=== PATIENT | female | born 1985 | race Caucasian/White ===

== ENCOUNTER 2017-04-20 00:52 | Emergency (ER) | payer OTHER ==
[~2017-04-20] VITALS: Ht 170.2 cm; Wt 65.8 kg
[~2017-04-20 00:52] MED LIST: ACET325 PO; ACETAMINOPHEN500 MG PO; ALBU90OI INH; ALPR.25 PO; ALPR.5 PO; ALPR1 PO; ALUMAG30SU PO; AMOX500 PO; AZIT250 PO; AZIT500 PO; BENTYL20 MG PO; BIRTH CONTROL PILLS; CEFD300 PO; CEPH500 PO; CIPR500 PO; CODACEE120 PO; CODGUAEL PO; CRUTCH4 USE; CYAN1000I IM; CYCL10 PO; DIAZ5 PO; DIPATR PO; DIPH25; DIVA500EC PO; DOCSEN PO; DOXY100 PO; ERYSTE250 PO; ERYT500 PO; FAMO20 PO; FAMO40 PO; FLUC150A PO; Flomax0.4 MG PO; HYDACE5 PO; IBUP200; IBUP600 PO; IBUP800 PO; IBUPROFEN 200 MG; IRON; KENALOG; LANS15EC PO; LEVCAR100L PO; LEVFLO500 PO; LEVSOD125 PO; LORA.5 PO; MEDR150I IM; METR250; METR500; METR500 PO; NAPR500 PO; NAPR550 PO; NORETHTP; Norco 5-325 Ta1 EACH PO; OMEP20ER PO; ONDA4ODT MM; OXYACE5T PO; PANT20 PO; PHENA200 PO; PRENATAL; PROCODE120 PO; PROM25 PO; Prednisone20 MG PO; RANI150 PO; RISP3 PO; RXDIPATR PO; RXHYDACE PO; RXONDA4ODT MM; RXOXYACE PO; RXPHEN200 PO; RXPROM25 PO; STOOL SOFTNER; SUCR1 PO; SULTRIDS PO; TRAM50 PO; TYLENOL W/ CODEINE; Tylenol325 MG PO; Ultram50 MG PO; Verotin-Gr Cap1 EACH PO; Zithromax250 MG PO; Zofran Odt4 MG SL; Zofran4 MG PO; [UNRECOGNIZED DRUG - OTHER]
[2017-04-20 02:09] LABS: Influenza A Negative (NEGATIVE); Influenza B Negative (NEGATIVE)
== END 2017-04-20 02:36 | disposition home or self-care (01) ==
LOC: ER 00:52
PROVIDERS: Emergency Medicine
DX: J11.1 Influenza due to unidentified influenza virus with other respiratory manifestations (principal); K21.9 Gastro-esophageal reflux disease without esophagitis; Z88.0 Allergy status to penicillin; Z88.8 Allergy status to other drugs, medicaments and biological substances; Z88.1 Allergy status to other antibiotic agents; Z88.5 Allergy status to narcotic agent; Z90.89 Acquired absence of other organs
CPT/HCPCS: 87081; 87430; 87804; 99283

== ENCOUNTER 2017-11-17 10:53 | Emergency (ER) | payer OTHER ==
[~2017-11-17] VITALS: Ht 170.2 cm; Wt 68.0 kg
[2017-11-17] MEDS ORDERED: KETO10 PO (12:18)
[2017-11-17] MEDS ORDERED: Cyclobenzaprine5 MG PO (12:18)
== END 2017-11-17 12:28 | disposition home or self-care (01) ==
LOC: ER 10:53
DX: S16.1XXA Strain of muscle, fascia and tendon at neck level, initial encounter (principal); V86.63XA Passenger of dune buggy injured in nontraffic accident, initial encounter; K21.9 Gastro-esophageal reflux disease without esophagitis
CPT/HCPCS: 99282

== ENCOUNTER 2018-03-08 22:42 | Emergency (ER) | payer OTHER ==
[~2018-03-08] VITALS: Ht 170.2 cm; Wt 64.4 kg
[~2018-03-08 22:42] MED LIST changes: +Cyclobenzaprine5 MG PO; +KETO10 PO
[2018-03-08] MEDS ORDERED: Zithromax250 MG PO (23:42)
== END 2018-03-09 00:47 | disposition home or self-care (01) ==
LOC: ER 22:42
DX: H66.91 Otitis media, unspecified, right ear (principal); R59.0 Localized enlarged lymph nodes; Z88.0 Allergy status to penicillin; Z88.8 Allergy status to other drugs, medicaments and biological substances; Z88.1 Allergy status to other antibiotic agents; Z88.5 Allergy status to narcotic agent; K21.9 Gastro-esophageal reflux disease without esophagitis
CPT/HCPCS: 87081; 87430; 99283; J1100

== ENCOUNTER 2018-05-28 20:26 | Emergency (ER) | payer OTHER ==
[~2018-05-28] VITALS: Ht 170.2 cm; Wt 64.4 kg
[2018-05-28] MEDS ORDERED: KETO10 PO (21:22)
== END 2018-05-28 21:34 | disposition home or self-care (01) ==
LOC: ER 20:26
DX: S90.32XA Contusion of left foot, initial encounter (principal); Z88.0 Allergy status to penicillin; Z79.899 Other long term (current) drug therapy; W04.XXXA Fall while being carried or supported by other persons, initial encounter
CPT/HCPCS: 73630; 99283-25

== ENCOUNTER 2019-02-16 21:04 | Emergency (ER) | payer OTHER ==
[~2019-02-16] VITALS: Ht 170.2 cm; Wt 70.3 kg
[2019-02-16] MEDS ORDERED: KETO10 PO (21:51)
[2019-02-16] MEDS ORDERED: Cyclobenzaprine5 MG PO (21:51)
== END 2019-02-16 22:02 | disposition home or self-care (01) ==
LOC: ER 21:04
DX: S16.1XXA Strain of muscle, fascia and tendon at neck level, initial encounter (principal); M62.838 Other muscle spasm; X58.XXXA Exposure to other specified factors, initial encounter; Z88.0 Allergy status to penicillin; Z88.8 Allergy status to other drugs, medicaments and biological substances; Z88.1 Allergy status to other antibiotic agents; Z88.5 Allergy status to narcotic agent; Z79.899 Other long term (current) drug therapy; K21.9 Gastro-esophageal reflux disease without esophagitis
CPT/HCPCS: 99283

== ENCOUNTER 2019-04-06 15:57 | Emergency (ER) | payer OTHER ==
[~2019-04-06] VITALS: Ht 170.2 cm; Wt 70.3 kg
[2019-04-06 17:20] LABS: Source, Urine Clean Catch
[2019-04-06 17:27] LABS: Bilirubin, Urine Neg (Neg); Blood, Urine Neg (Neg); Glucose Qualitative, Urine Neg (Neg); Ketones, Urine 1+ (Neg); Leukocyte Esterase, Urine 1+ (Neg); Nitrite, Urine Neg (Neg); Protein, Urine Neg (Neg); Urobilinogen, Urine NORM (Normal)
[2019-04-06 17:30] LABS: Appearance, Urine Clear (Clear); Color, Urine Yellow (P-Yellow)
[2019-04-06 17:34] LABS: Bacteria Mod /hpf; Red Blood Cells, Urine 0-2 /hpf (0-2); Squamous Epithelial Cells Few /hpf (Few)
[2019-04-06 17:35] LABS: Mucus Mod (0-Heavy)
[2019-04-06 18:59] LABS: BASOPHILS ABSOLUTE AUTO 0.04 K/mm3 (0.00-0.23); BASOPHILS PERCENT AUTO 0 % (0-2); EOSINOPHILS ABSOLUTE AUTO 0.07 K/mm3 (0.00-0.68); EOSINOPHILS PERCENT AUTO 1 % (0-6); Hematocrit 39.2 % (33.0-51.0); Hemoglobin 13.4 g/dL (11.5-16.0); IMMATURE GRAN ABSOLUTE AUTO 0.03 K/mm3 (0.00-0.10); IMMATURE GRAN PERCENT AUTO 0 % (0-1); LYMPHOCYTES ABSOLUTE AUTO 2.18 K/mm3 (0.84-5.20); LYMPHOCYTES PERCENT AUTO 18 % (21-46); MONOCYTES ABSOLUTE AUTO 0.95 K/mm3 (0.16-1.47); MONOCYTES PERCENT AUTO 8 % (4-13); Mean Corpuscular HGB 29.3 pg (26.0-34.0); Mean Corpuscular HGB Conc 34.2 g/dL (31.5-36.5); Mean Corpuscular Volume 86 fL (80-100); Mean Platelet Volume 9.9 fL (9.1-12.4); NEUTROPHILS ABSOLUTE AUTO 8.77 K/mm3 (1.96-9.15); NEUTROPHILS PERCENT AUTO 73 % (41-73); Platelet Count 243 K/mm3 (150-400); RDW Coefficient Variation 11.9 % (11.7-14.2); RDW Standard Deviation 37.2 fL (35.1-46.3); Red Blood Cell Count 4.57 M/mm3 (3.80-5.20); White Blood Cell Count 12.04 K/mm3 (4.00-11.30)
[2019-04-06 19:41] LABS: Alanine Aminotransfer (ALT/SGP 26 U/L (12-78); Albumin, Blood 4.1 g/dL (3.4-5.0); Albumin/Globulin Ratio 1.2 (0.8-1.8); Alk Phos 61 U/L (50-136); Anion Gap 5 mmol/L (6-16); Aspartate Aminotrans (AST/SGOT 9 U/L (12-37); Bilirubin, Total 0.8 mg/dL (0.1-1.0); Blood Urea Nitrogen 13 mg/dL (8-24); CO2, Blood 25 mmol/L (21-32); Calcium, Blood 8.9 mg/dL (8.5-10.1); Chloride, Blood 107 mmol/L (98-108); Creatinine, Blood 0.72 mg/dL (0.40-1.00); Globulin, Blood 3.5 g/dL (2.2-4.0); Glomerular Filtration Rate >60 (60-); Glucose, Blood 87 mg/dL (70-99); Potassium, Blood 3.9 mmol/L (3.5-5.5); Sodium, Blood 137 mmol/L (136-145); Total Protein, Blood 7.6 g/dL (6.4-8.2)
[2019-04-06] MEDS ORDERED: ONDA4ODT MM (21:30)
[2019-04-06] MEDS ORDERED: Prednisone20 MG PO (21:30)
== END 2019-04-06 21:39 | disposition home or self-care (01) ==
LOC: ER 15:57
PROVIDERS: Physician Assistant
DX: K52.9 Noninfective gastroenteritis and colitis, unspecified (principal); J01.90 Acute sinusitis, unspecified; B97.89 Other viral agents as the cause of diseases classified elsewhere; Z88.0 Allergy status to penicillin; Z88.8 Allergy status to other drugs, medicaments and biological substances; Z88.1 Allergy status to other antibiotic agents; Z79.899 Other long term (current) drug therapy; K21.9 Gastro-esophageal reflux disease without esophagitis; F41.9 Anxiety disorder, unspecified
CPT/HCPCS: 36415; 74177; 76770; 80053; 81001; 81025; 83690; 85025; 87086; 99284-25; A9270; Q9967

== ENCOUNTER → 2019-04-06 | Outpatient (CLI) | payer OTHER ==
[2019-04-08 15:07] LABS: HPV 16 Negative (Negative); HPV 18 Negative (Negative); HPV OTHER HR TYPES Negative (Negative)
== END | disposition home or self-care (01) ==
LOC: LAB 18:39 → LAB SHORT 18:39
PROVIDERS: Obstetrics & Gynecology
DX: Z01.419 Encounter for gynecological examination (general) (routine) without abnormal findings (principal)
CPT/HCPCS: 87624; G0123

== ENCOUNTER 2020-05-16 09:11 | Emergency (ER) | payer OTHER ==
[~2020-05-16] VITALS: Ht 170.2 cm; Wt 72.6 kg
[2020-05-16 10:06] LABS: BASOPHILS ABSOLUTE AUTO 0.05 K/mm3 (0.00-0.23); BASOPHILS PERCENT AUTO 1 % (0-2); EOSINOPHILS ABSOLUTE AUTO 0.11 K/mm3 (0.00-0.68); EOSINOPHILS PERCENT AUTO 2 % (0-6); Hematocrit 40.5 % (33.0-51.0); Hemoglobin 14.3 g/dL (11.5-16.0); IMMATURE GRAN ABSOLUTE AUTO 0.02 K/mm3 (0.00-0.10); IMMATURE GRAN PERCENT AUTO 0 % (0-1); LYMPHOCYTES ABSOLUTE AUTO 1.97 K/mm3 (0.84-5.20); LYMPHOCYTES PERCENT AUTO 27 % (21-46); MONOCYTES ABSOLUTE AUTO 0.64 K/mm3 (0.16-1.47); MONOCYTES PERCENT AUTO 9 % (4-13); Mean Corpuscular HGB 29.3 pg (26.0-34.0); Mean Corpuscular HGB Conc 35.3 g/dL (31.5-36.5); Mean Corpuscular Volume 83 fL (80-100); Mean Platelet Volume 10.5 fL (9.1-12.4); NEUTROPHILS PERCENT AUTO 62 % (41-73); Platelet Count 262 K/mm3 (150-400); RDW Coefficient Variation 12.2 % (11.7-14.2); RDW Standard Deviation 36.8 fL (35.1-46.3); Red Blood Cell Count 4.88 M/mm3 (3.80-5.20); White Blood Cell Count 7.29 K/mm3 (4.00-11.30)
[2020-05-16 10:08] LABS: Source, Urine Clean Catch
[2020-05-16 10:12] LABS: Bilirubin, Urine Neg (Neg); Blood, Urine 1+ (Neg); Glucose Qualitative, Urine Neg (Neg); Ketones, Urine 1+ (Neg); Leukocyte Esterase, Urine 2+ (Neg); Nitrite, Urine Neg (Neg); Protein, Urine 1+ (Neg); Urobilinogen, Urine NORM (Normal)
[2020-05-16 10:22] LABS: Appearance, Urine Hazy (Clear); Color, Urine Yellow (P-Yellow)
[2020-05-16 10:25] LABS: Squamous Epithelial Cells Many /hpf (Few)
[2020-05-16 10:28] LABS: Alanine Aminotransfer (ALT/SGP 30 U/L (12-78); Albumin, Blood 4.2 g/dL (3.4-5.0); Albumin/Globulin Ratio 1.1 (0.8-1.8); Alk Phos 70 U/L (50-136); Anion Gap 6 mmol/L (6-16); Aspartate Aminotrans (AST/SGOT 14 U/L (12-37); Blood Urea Nitrogen 9 mg/dL (8-24); Bun/Creatinine Ratio 12.5 (12.0-20.0); CO2, Blood 27 mmol/L (21-32); Calcium, Blood 9.2 mg/dL (8.5-10.1); Chloride, Blood 107 mmol/L (98-108); Creatinine, Blood 0.72 mg/dL (0.40-1.00); Globulin, Blood 3.9 g/dL (2.2-4.0); Glomerular Filtration Rate >60 (60-); Glucose, Blood 92 mg/dL (70-99); Potassium, Blood 3.8 mmol/L (3.5-5.5); Sodium, Blood 140 mmol/L (136-145); Total Protein, Blood 8.1 g/dL (6.4-8.2)
[2020-05-16 10:30] LABS: Bacteria Many /hpf; Yeast/Fungi Urine Few /hpf
== END 2020-05-16 11:37 | disposition home or self-care (01) ==
LOC: ER 09:11
PROVIDERS: Physician Assistant
DX: R10.9 Unspecified abdominal pain (principal); R19.7 Diarrhea, unspecified; Z88.0 Allergy status to penicillin; Z79.899 Other long term (current) drug therapy; Z88.8 Allergy status to other drugs, medicaments and biological substances; Z88.2 Allergy status to sulfonamides; Z88.1 Allergy status to other antibiotic agents; Z88.5 Allergy status to narcotic agent
CPT/HCPCS: 36415; 74176; 80053; 81001; 81025; 83690; 85025; 87086; 99284-25; J1885

== ENCOUNTER → 2021-05-11 | Outpatient (CLI) | payer OTHER | END | disposition home or self-care (01) | LOC: LAB SHORT 17:05 | DX: N94.89 Other specified conditions associated with female genital organs and menstrual cycle (principal) | CPT/HCPCS: 87086 ==

== ENCOUNTER → 2021-05-17 | Outpatient (CLI) | payer OTHER ==
[2021-05-18 09:40] LABS: Candida species (DNA Probe) Negative (NEGATIVE); G. vaginalis (DNA Probe) Negative (NEGATIVE); T. vaginalis (DNA Probe) Negative (NEGATIVE)
== END | disposition home or self-care (01) ==
LOC: LAB 14:11 → LAB SHORT 14:11
PROVIDERS: Family Medicine
DX: N89.8 Other specified noninflammatory disorders of vagina (principal); R10.2 Pelvic and perineal pain
CPT/HCPCS: 87480; 87510; 87660

== ENCOUNTER 2021-05-23 12:38 | Emergency (ER) | payer OTHER ==
[~2021-05-23] VITALS: Ht 182.9 cm; Wt 71.2 kg
[2021-05-23 13:23] LABS: Source, Urine Clean Catch
[2021-05-23 13:26] LABS: Appearance, Urine Hazy (Clear); Bilirubin, Urine Neg (Neg); Blood, Urine 5+ (Neg); Color, Urine Yellow (P-Yellow); Glucose Qualitative, Urine Neg (Neg); Ketones, Urine 1+ (Neg); Leukocyte Esterase, Urine 2+ (Neg); Nitrite, Urine Neg (Neg); Protein, Urine Neg (Neg); Urobilinogen, Urine NORM (Normal)
[2021-05-23 13:28] LABS: BASOPHILS ABSOLUTE AUTO 0.07 K/mm3 (0.00-0.23); BASOPHILS PERCENT AUTO 1 % (0-2); EOSINOPHILS ABSOLUTE AUTO 0.11 K/mm3 (0.00-0.68); EOSINOPHILS PERCENT AUTO 2 % (0-6); Hematocrit 42.8 % (33.0-51.0); Hemoglobin 14.4 g/dL (11.5-16.0); IMMATURE GRAN ABSOLUTE AUTO 0.02 K/mm3 (0.00-0.10); IMMATURE GRAN PERCENT AUTO 0 % (0-1); LYMPHOCYTES PERCENT AUTO 28 % (21-46); MONOCYTES ABSOLUTE AUTO 0.57 K/mm3 (0.16-1.47); MONOCYTES PERCENT AUTO 8 % (4-13); Mean Corpuscular HGB 28.6 pg (26.0-34.0); Mean Corpuscular HGB Conc 33.6 g/dL (31.5-36.5); Mean Corpuscular Volume 85 fL (80-100); Mean Platelet Volume 9.9 fL (9.1-12.4); NEUTROPHILS ABSOLUTE AUTO 4.43 K/mm3 (1.96-9.15); NEUTROPHILS PERCENT AUTO 62 % (41-73); Platelet Count 312 K/mm3 (150-400); RDW Coefficient Variation 12.9 % (11.7-14.2); RDW Standard Deviation 39.8 fL (35.1-46.3); Red Blood Cell Count 5.03 M/mm3 (3.80-5.20)
[2021-05-23] MEDS ORDERED: TRAZ100 PO (13:30)
[2021-05-23 13:38] LABS: Red Blood Cells, Urine 25-50 /hpf (0-2)
[2021-05-23 13:39] LABS: Bacteria Rare /hpf; Squamous Epithelial Cells Rare /hpf (Few)
[2021-05-23 13:40] LABS: Mucus Light (0-Heavy)
[2021-05-23 13:41] LABS: Amorphous Light (0-Heavy)
[2021-05-23 13:43] LABS: Alanine Aminotransfer (ALT/SGP 34 U/L (12-78); Albumin, Blood 4.4 g/dL (3.4-5.0); Albumin/Globulin Ratio 1.1 (0.8-1.8); Alk Phos 67 U/L (50-136); Anion Gap 5 mmol/L (6-16); Aspartate Aminotrans (AST/SGOT 14 U/L (12-37); Blood Urea Nitrogen 9 mg/dL (8-24); Bun/Creatinine Ratio 12.7 (12.0-20.0); CO2, Blood 27 mmol/L (21-32); Calcium, Blood 9.1 mg/dL (8.5-10.1); Chloride, Blood 105 mmol/L (98-108); Creatinine, Blood 0.71 mg/dL (0.40-1.00); Globulin, Blood 4.1 g/dL (2.2-4.0); Glomerular Filtration Rate >60 (60-); Glucose, Blood 102 mg/dL (70-99); Potassium, Blood 4.1 mmol/L (3.5-5.5); Sodium, Blood 137 mmol/L (136-145); Total Protein, Blood 8.5 g/dL (6.4-8.2)
== END 2021-05-23 17:25 | disposition home or self-care (01) ==
LOC: ER 12:38
PROVIDERS: Student in an Organized Health Care Education/Training Program
DX: E28.2 Polycystic ovarian syndrome (principal); N93.8 Other specified abnormal uterine and vaginal bleeding; K21.9 Gastro-esophageal reflux disease without esophagitis; Z88.0 Allergy status to penicillin; Z79.899 Other long term (current) drug therapy
CPT/HCPCS: 36415; 76830; 76856; 80053; 81001; 81025; 85025; 87086; 99284-25

== ENCOUNTER 2021-09-13 12:16 | Emergency (ER) | payer OTHER ==
[~2021-09-13] VITALS: Ht 170.2 cm; Wt 70.3 kg
[~2021-09-13 12:16] MED LIST changes: +TRAZ100 PO
[2021-09-13 14:24] LABS: BASOPHILS ABSOLUTE AUTO 0.05 K/mm3 (0.00-0.23); BASOPHILS PERCENT AUTO 1 % (0-2); EOSINOPHILS ABSOLUTE AUTO 0.09 K/mm3 (0.00-0.68); EOSINOPHILS PERCENT AUTO 1 % (0-6); Hematocrit 41.4 % (33.0-51.0); Hemoglobin 14.2 g/dL (11.5-16.0); IMMATURE GRAN ABSOLUTE AUTO 0.03 K/mm3 (0.00-0.10); IMMATURE GRAN PERCENT AUTO 0 % (0-1); LYMPHOCYTES PERCENT AUTO 20 % (21-46); MONOCYTES ABSOLUTE AUTO 0.79 K/mm3 (0.16-1.47); MONOCYTES PERCENT AUTO 8 % (4-13); Mean Corpuscular HGB 28.5 pg (26.0-34.0); Mean Corpuscular HGB Conc 34.3 g/dL (31.5-36.5); Mean Corpuscular Volume 83 fL (80-100); Mean Platelet Volume 9.9 fL (9.1-12.4); NEUTROPHILS ABSOLUTE AUTO 7.13 K/mm3 (1.96-9.15); NEUTROPHILS PERCENT AUTO 71 % (41-73); Platelet Count 271 K/mm3 (150-400); RDW Coefficient Variation 12.4 % (11.7-14.2); RDW Standard Deviation 37.6 fL (35.1-46.3); Red Blood Cell Count 4.98 M/mm3 (3.80-5.20); White Blood Cell Count 10.09 K/mm3 (4.00-11.30)
[2021-09-13 14:39] LABS: Albumin, Blood 4.2 g/dL (3.4-5.0); Albumin/Globulin Ratio 1.1 (0.8-1.8); Bilirubin, Total 0.8 mg/dL (0.1-1.0); Bun/Creatinine Ratio 19.1 (12.0-20.0); Calcium, Blood 9.9 mg/dL (8.5-10.1); Creatinine, Blood 0.68 mg/dL (0.40-1.00); Globulin, Blood 3.8 g/dL (2.2-4.0); Potassium, Blood 4.3 mmol/L (3.5-5.5)
[2021-09-13 14:55] LABS: Source, Urine Clean Catch
[2021-09-13 15:15] LABS: Appearance, Urine Clear (Clear); Bilirubin, Urine Neg (Neg); Blood, Urine Neg (Neg); Color, Urine Yellow (P-Yellow); Glucose Qualitative, Urine Neg (Neg); Ketones, Urine Neg (Neg); Leukocyte Esterase, Urine 1+ (Neg); Nitrite, Urine Neg (Neg); Protein, Urine Neg (Neg); Specific Gravity, Urine 1.015 (1.003-1.022); Urobilinogen, Urine NORM (Normal)
[2021-09-13 15:36] LABS: Bacteria Few /hpf; Red Blood Cells, Urine 0-2 /hpf (0-2); Squamous Epithelial Cells Few /hpf (Few)
== END 2021-09-13 16:26 | disposition home or self-care (01) ==
LOC: ER 12:16
PROVIDERS: Physician Assistant
DX: R10.11 Right upper quadrant pain (principal); M54.10 Radiculopathy, site unspecified; F41.9 Anxiety disorder, unspecified; K21.9 Gastro-esophageal reflux disease without esophagitis; Z79.899 Other long term (current) drug therapy; Z88.6 Allergy status to analgesic agent; Z88.1 Allergy status to other antibiotic agents; Z88.5 Allergy status to narcotic agent; Z88.0 Allergy status to penicillin; Z88.8 Allergy status to other drugs, medicaments and biological substances
CPT/HCPCS: 36415; 74176; 80053; 81001; 83690; 85025; 87086; 99284-25

== ENCOUNTER 2023-11-01 18:24 | Emergency (ER) | payer OTHER, BC ==
[~2023-11-01] VITALS: Ht 170.2 cm; Wt 67.1 kg
[2023-11-01 19:04] VITALS: BP 135/87
[2023-11-01] MEDS ORDERED: Ondansetron 4 MG SoluTab MM ONE (19:10)
[2023-11-01] MEDS ORDERED: RX Prepack 2 Tabs Ondansetron ODT 4MG UD ONE (19:10)
== END 2023-11-01 20:09 | disposition left against medical advice (07) ==
LOC: ER 18:24
DX: A08.4 Viral intestinal infection, unspecified (principal); Z88.0 Allergy status to penicillin; Z88.1 Allergy status to other antibiotic agents; Z88.8 Allergy status to other drugs, medicaments and biological substances; Z53.21 Procedure and treatment not carried out due to patient leaving prior to being seen by health care provider
CPT/HCPCS: 99281

== ENCOUNTER → 2024-03-03 | Outpatient (CLI) | payer OTHER | LOC: PLD 07:41 → LAB SHORT 07:41 → LAB 07:41 | DX: D22.61 Melanocytic nevi of right upper limb, including shoulder (principal) | CPT/HCPCS: 88305 ==